=== PATIENT | female | born 1945 | race Caucasian/White ===

== ENCOUNTER 2018-12-21 09:20 | Outpatient (CLI) | payer MEDICARE, OTHER ==
--- NOTE | 2018-12-21 11:30 | MRI ---
MRI OF THE CERVICAL SPINE WITHOUT CONTRAST: INDICATION: History of cervicalgia. COMPARISON: None. FINDINGS: There is a cystic mass in the inferior aspect of the superficial left parotid gland on image 16 of se loco 11 measuring 1.2 cm. There is atrophy of the left parotid gland which is nonspecific. Bone marrow signal intensity of the cervical spine appears within normal limits. The visualized posterior fossa reveals no definite acute abnormality. At the C2-C3 level, there is moderate left and mild right facet joint degenerative change and mild le ft neural foraminal narrowing. There is a small central protrusion causing mild ventral effacement o f the subarachnoid space. At C3-4, there is severe facet joint degenerative change on the right and moderate facet joint degene rative change on the left. There is uncovertebral hypertrophy. There is mild to moderate right neur al foraminal narrowing. At C4-5, there is facet osteoarthrosis that is severe bilaterally, right greater than left. There is no appreciable central canal or neural foraminal narrowing. At C5-6, there is moderate left and mild right facet joint degenerative change. There is no apprecia ble central canal or neural foraminal narrowing. There is a broad-based disk bulge. At C6-7, there is mild broad-based bulge without appreciable central canal or neural foraminal narrow ing. At C7-T1, there is no appreciable central canal or neural foraminal narrowing. IMPRESSION: 1. Mild left neural foraminal narrowing at C2-3. Mild to moderate right neural foraminal narrowing at C3-4. 2. Complex cystic mass involving the inferior aspect of the left parotid gland is incompletely cynthia cterized. CT of the soft tissue neck utilizing IV contrast recommended for additional characterizati on. Nonspecific mild atrophy of the left parotid gland. ENT consultation is recommended. CODE T POS: C
--- NOTE | 2018-12-21 12:26 | MRI ---
MRI OF RIGHT SHOULDER PERFORMED WITHOUT CONTRAST ENHANCEMENT: HISTORY: Right shoulder pain. FINDINGS: There are some moderate AC joint hypertrophic changes with a laterally downsloping acromion. There is a full-thickness partial width anterior supraspinatus tendon tear. The tendon is minimally retracted by only 5-6 mm. The AP dimension of the tear is approximately 9-10 mm involving more the a nterior half of the tendon. The infraspinatus tendon is intact. Subscapularis muscle and tendon are normal in appearance. The biceps tendon is normal in position wi thin the bicipital groove. No definitive labral abnormalities are seen. The inferior glenohumeral ligament is intact. No significant rotator cuff muscle atrophy. IMPRESSION: Full-thickness partial-width far anterior supraspinatus tendon tear which is very minimally retracted . POS: TPC
== END 2018-12-21 09:21 | disposition home or self-care (01) ==
LOC: BICMRI 09:20
PROVIDERS: ATTEND Family Medicine
DX: M25.511 Pain in right shoulder (principal); M54.2 Cervicalgia; M75.101 Unspecified rotator cuff tear or rupture of right shoulder, not specified as traumatic; M48.02 Spinal stenosis, cervical region; K11.8 Other diseases of salivary glands
CPT/HCPCS: 72141

== ENCOUNTER 2018-12-26 02:52 | Outpatient (CLI) | payer MEDICARE, OTHER ==
[2018-12-26 12:28] LABS: #Lymphocytes 1.9 thou/uL (1.20-3.40); #Monocytes 0.9 thou/uL (0.11-0.59); #Neutrophils 6.8 thou/uL (1.40-6.50); %Basophils 0.3 % (0.0-1.0); %Eosinophils 0.4 % (0.0-10.0); %Lymphocytes 19.7 % (21.0-51.0); %Monocytes 9.5 % (0.0-10.0); Hemoglobin 13.2 g/dL (12.0-16.0); Mean Corpuscular HGB CONC 33.1 g/dL (32.0-36.0); Mean Corpuscular Hemoglobin 32.8 pg (27.0-31.0); Mean Corpuscular Volume 99.3 fL (78.0-98.0); Mean Platelet Volume 6.9 fL (7.4-10.4); Platelet Count 310 thou/uL (130-400); RBC Distribution Width 11.4 % (11.5-14.5); Red Blood Cell (RBC) Count 4.02 mill/uL (4.20-5.40); White Blood Cell (WBC) Count 9.7 thou/uL (4.8-10.8)
[2018-12-26 12:55] LABS: Anion Gap 14 mmol/L (10-20); BUN (Urea Nitrogen) 17 mg/dL (9.8-20.1); Calc. Creatinine Clearance 0 mL/min (70-130); Calcium 9.7 mg/dL (7.8-10.44); Carbon Dioxide 25 mmol/L (23-31); Chloride 106 mmol/L (98-107); Estimated GFR-MDRD 72; Glucose 71 mg/dL (83-110); Potassium 4.3 mmol/L (3.5-5.1); Sodium 141 mmol/L (136-145)
--- NOTE | 2018-12-26 16:59 | EKG ---
Test Reason : Blood Pressure : / mmHG Vent. Rate : 069 BPM Atrial Rate : 069 BPM P-R Int : 158 ms QRS Dur : 072 ms QT Int : 386 ms P-R-T Axes : 039 016 065 degrees QTc Int : 413 ms Normal sinus rhythm Normal ECG When compared with ECG of 03-OCT-2012 09:42, No significant change was found Confirmed by DR. Vimal GUILLEN ([id number]) on 12/26/2018 4:58:40 PM Referred By: ASHLEY Confirmed By:DR. Vimal GUILLEN
== END 2018-12-26 02:53 | disposition home or self-care (01) ==
LOC: LABBT 02:52
PROVIDERS: ATTEND Orthopaedic Surgery
DX: Z01.818 Encounter for other preprocedural examination (principal); M75.101 Unspecified rotator cuff tear or rupture of right shoulder, not specified as traumatic
CPT/HCPCS: 80048; 85025; 93005; 93010

== ENCOUNTER 2019-01-03 09:42 | Outpatient (CLI) | payer MEDICARE, OTHER ==
[2019-01-03] MEDS ORDERED: ISOVUE-370 76%-LOCM 1 ML ONE (11:26)
--- NOTE | 2019-01-03 11:50 | CT ---
POST CONTRAST SOFT TISSUE NECK CT: HISTORY: Neck pain. Recent MRI of the cervical spine demonstrated a left parotid mass. COMPARISON: None. CORRELATION: Cervical spine MRI from 12/21/2018. TECHNIQUE: Post contrast soft tissue neck CT is performed in the axial plane. Sagittal and coronal reformatted images are submitted for interpretation. FINDINGS: The visualized brain parenchyma is unremarkable. There is buphthalmos of both globes. Bilateral ocular lens implants are appropriately located. Both globes are intact, and retrobulbar fat is preserved. Symmetric attenuation of the optic nerves and ocular rectus muscles. Adequate aeration of the visualized sinuses and mastoid air cells. The aerodigestive tract is patent. No mucosal abnormality. Midline fatty raphe of the tongue is pre served. The epiglottis has a normal caliber. Pre-epiglottic fat is preserved. There is mass effect upon the posterior oral cavity secondary to medial deviation of both common mulligan tid arteries. The supraglottic, glottic, and subglottic larynx are unremarkable. Symmetric attenuation of the sternocleidomastoid muscles. Symmetric attenuation of the parotid glands. Unremarkable thyroid gland. There are bilateral nonenlarged soft tissue neck lymph nodes. In the anterior-inferior aspect of the left parotid gland, there is a 0.6 x 0.7 cm hypodense lesion, corresponding to the T2 hyperintense lesion noted on recent MRI. Additional left parotid masses and right parotid masses are not appreciated. Of note, the overall walling of the left parotid gland is l ess than the contralateral side, presumed to be due to atrophy. Correlate for previous partial left parotid resection. The upper mediastinum and lung apices are unremarkable. Cervical spine vertebral body height is maintained. There is no fracture. Osteophyte formation at C 5-C6 and C6-C7 is noted. Varying degrees of central canal stenosis and foraminal narrowing on the ba sis of degenerative change. IMPRESSION: Hypodense lesion involving the remnant of the left parotid tissue. The hypodense lesion corresponds to the T2 lesion noted on recent MRI. Correlate for previous partial left parotid resection versus c ongenital or acquired atrophy. POS: SJ
== END 2019-01-03 09:43 | disposition home or self-care (01) ==
LOC: BICCT 09:42
PROVIDERS: ATTEND Specialist
DX: M54.2 Cervicalgia (principal); K11.8 Other diseases of salivary glands; M89.9 Disorder of bone, unspecified
CPT/HCPCS: 70491; Q9966

== ENCOUNTER 2019-01-05 06:31 | Day surgery (SDC) | payer MEDICARE, OTHER ==
[2018-12-26 11:59] VITALS: BMI 29.5
[2019-01-05] MEDS ORDERED: Fentanyl 100 MCG/2 ML VIAL ONE ×2 (07:52→08:42)
[2019-01-05] MEDS ORDERED: Midazolam HCl 2 mg/2 ml Vial ONE (07:52)
[2019-01-05] MEDS ORDERED: Zolpidem Tartrate 5 MG TAB PO PRN (08:15)
[2019-01-05] MEDS ORDERED: Ropivacaine 0.2% 550 ML 550 ML NERVE BLCK SCH (08:15)
[2019-01-05] MEDS ORDERED: HYDROcodone/Acetaminophen 5/325 mg Tablet PO PRN ×2 (08:15)
[2019-01-05] MEDS ORDERED: Ketorolac Tromethamine 30 MG/ML VIAL IVP PRN (08:15)
[2019-01-05] MEDS ORDERED: traMADol HCl 50 MG TAB PO PRN ×2 (08:15)
[2019-01-05] MEDS ORDERED: Ondansetron PF 4 MG/2 ML Vial IVP PRN (08:15)
[2019-01-05] MEDS ORDERED: Promethazine HCl 25 MG/ML VIAL IM PRN (08:15)
[2019-01-05] MEDS ORDERED: Fentanyl 100 MCG/2 ML VIAL IV PRN (08:16)
[2019-01-05] MEDS ORDERED: SUGAMMADEX SODIUM 500 MG/5 ML VIAL ONE (10:19)
--- NOTE | 2019-01-05 12:43 | OP ---
DATE OF PROCEDURE: 01/05/2019 PREOPERATIVE DIAGNOSIS: Rotator cuff tear, right shoulder. POSTOPERATIVE DIAGNOSIS: Rotator cuff tear, right shoulder. PROCEDURE PERFORMED: Right arthroscopic rotator cuff repair double row using 2 Arthrex suture anchors medially and 2 SwiveLock anchors laterally. EXECUTIVE VP: Zoraida Malone PA-C. BLOOD LOSS: Minimal. SPECIMEN: None. DRAINS: None. COMPLICATION: None. DESCRIPTION OF PROCEDURE: The patient was taken to the operating room, where general anesthesia was induced, placed in left lateral decubitus position. Right arm was placed in 15 pounds of traction, prepped and draped in usual sterile fashion. Scope was in the glenohumeral joint. There was no significant arthritis. Biceps in good condition. There was a full-thickness rotator cuff tear. The scope was placed in subacromial bursa performed the bursectomy. CA ligament was taken down. Anterior inferior acromioplasty was performed with a nixon. I freshened the greater tuberosity with the shaver and a nixon. Two suture anchors were placed medially. Suture was passed through the rotator cuff and tied with good watertight repair, then reinforced with 2 SwiveLock devices in a crossing type fashion. Shoulders were then drained. Portals were closed in nylon suture. Sterile dressings were applied. No complications. Job ID: [id number]
[2019-01-05] MEDS ORDERED: Ropivacaine 0.5% HCl/PF (150 MG/30 ML VIAL) ONE (14:59)
[2019-01-05] MEDS ORDERED: Ropivacaine 0.2% HCl/PF (40 MG/20 ML VIAL) ONE (14:59)
[2019-01-05] MEDS ORDERED: Dexamethasone 20 MG/5 ML VIAL ONE (15:45)
[2019-01-05] MEDS ORDERED: PROPOFOL 200 MG/20 ML VIAL ONE (15:45)
[2019-01-05] MEDS ORDERED: PHENYLEPHRINE-NS 100 MCG/ML 10 ML SYRINGE ONE (15:45)
[2019-01-05] MEDS ORDERED: Ondansetron PF 4 MG/2 ML Vial ONE (15:45)
[2019-01-05] MEDS ORDERED: Rocuronium Bromide 10 MG/ML (10ML VIAL) ONE (15:45)
[2019-01-05] MEDS ORDERED: ePHEDrine 50 MG/ML VIAL ONE (15:45)
[2019-01-05] MEDS ORDERED: Lidocaine 1% PF 5 ML VIAL ONE (15:45)
[2019-01-05] MEDS ORDERED: Glycopyrrolate 0.2 MG/ML 5 ML SYRINGE ONE (15:45)
== END 2019-01-05 13:25 | disposition home or self-care (01) ==
LOC: SDC 06:31
PROVIDERS: ATTEND Orthopaedic Surgery
PROC: 0LM14ZZ Reattachment of Right Shoulder Tendon, Percutaneous Endoscopic Approach (ICD-10-PCS; principal; 2019-01-05)
PROC: 0RHJ44Z Insertion of Internal Fixation Device into Right Shoulder Joint, Percutaneous Endoscopic Approach (ICD-10-PCS; 2019-01-05)
DX: S46.011A Strain of muscle(s) and tendon(s) of the rotator cuff of right shoulder, initial encounter (principal); K21.9 Gastro-esophageal reflux disease without esophagitis; E03.9 Hypothyroidism, unspecified; F32.9 Major depressive disorder, single episode, unspecified; E78.00 Pure hypercholesterolemia, unspecified; F41.9 Anxiety disorder, unspecified; Z79.899 Other long term (current) drug therapy; Z88.0 Allergy status to penicillin; Z88.2 Allergy status to sulfonamides; Z88.8 Allergy status to other drugs, medicaments and biological substances; X50.0XXA Overexertion from strenuous movement or load, initial encounter
CPT/HCPCS: 29827; 97139; A4306; C1713; J1100; J2001; J2250; J2405; J2704; J2795; J3010; J3370; J3490

== ENCOUNTER 2019-01-27 10:54 | Emergency (ER) | payer MEDICARE, OTHER | END 2019-01-27 11:43 | disposition home or self-care (01) | LOC: ERS 10:54 | DX: G89.18 Other acute postprocedural pain (principal); M25.511 Pain in right shoulder; E78.5 Hyperlipidemia, unspecified; E03.9 Hypothyroidism, unspecified; F32.9 Major depressive disorder, single episode, unspecified | CPT/HCPCS: 99283 ==

== ENCOUNTER 2019-04-05 14:07 | Outpatient (CLI) | payer MEDICARE, OTHER ==
--- NOTE | 2019-04-06 07:46 | MMO ---
Bilateral MAMMO Bilat Screen [facility]. CLINICAL HISTORY: Patient is 73 years old and is seen for screening. The patient has no family history of breast cancer. The patient has no personal history of cancer. The patient has a history of left Lumpectomy at age 61 - benign. VIEWS: The views performed were: bilateral craniocaudal with tomosynthesis and bilateral mediolateral oblique with tomosynthesis. FILMS COMPARED: The present examination has been compared to prior imaging studies performed at [facility] on 02/09/2012, and at [facility] on 06/07/2017. MAMMOGRAM FINDINGS: The breasts are heterogeneously dense, which could obscure a lesion on mammography. There are benign appearing calcifications seen in both breasts. There are also vascular calcifications. There are no suspicious masses, suspicious calcifications, or new areas of architectural distortion. IMPRESSION: THERE IS NO MAMMOGRAPHIC EVIDENCE OF MALIGNANCY. A ROUTINE FOLLOW-UP MAMMOGRAM IN 1 YEAR IS RECOMMENDED. THE RESULTS OF THIS EXAM WERE SENT TO THE PATIENT. ACR BI-RADS Category 2 - Benign finding MAMMOGRAPHY NOTE: 1. A negative mammogram report should not delay a biopsy if a dominant of clinically suspicious mass is present. 2. Approximately 10% to 15% of breast cancers are not detected by mammography. 3. Adenosis and dense breasts may obscure an underlying neoplasm.
== END 2019-04-05 14:08 | disposition home or self-care (01) ==
LOC: BICMAMMO 14:07
PROVIDERS: ATTEND Family Medicine
DX: Z12.31 Encounter for screening mammogram for malignant neoplasm of breast (principal); Z90.12 Acquired absence of left breast and nipple
CPT/HCPCS: 77063; 77067

== ENCOUNTER 2020-10-27 11:35 | Inpatient (IN) | payer MEDICARE, OTHER ==
--- NOTE | 2020-10-27 12:14 | RAD ---
Exam: Chest one view HISTORY:Dyspnea. COVID positive patient. Shortness of breath and fatigue. Comparison: None FINDINGS: Cardiac silhouette: Normal Aorta: Atherosclerotic Pulmonary vessels: Normal Costophrenic angles: Clear LUNGS: Scattered interstitial and alveolar opacities. Pneumothorax: None Osseous abnormalities: None IMPRESSION: 1. Scattered interstitial and alveolar opacities. Correlate for multi lobar COVID pneumonia 2. Atherosclerosis.
[2020-10-27] MEDS ORDERED: cefTRIAXone\\ROCEPHIN 1 GM VIAL ONE (12:38)
[2020-10-27] MEDS ORDERED: Dexamethasone 10 MG/ML VIAL ONE (12:38)
[2020-10-27 12:51] LABS: #Lymphocytes 0.7 thou/uL (1.20-3.40); #Monocytes 0.7 thou/uL (0.11-0.59); #Neutrophils 7.9 thou/uL (1.40-6.50); %Basophils 0.2 % (0.0-1.0); %Eosinophils 0.2 % (0.0-10.0); %Lymphocytes 7.4 % (21.0-51.0); %Monocytes 7.7 % (0.0-10.0); %Neutrophils 84.5 % (42.0-75.0); Hemoglobin 12.6 g/dL (12.0-16.0); Mean Corpuscular HGB CONC 32.1 g/dL (32.0-36.0); Mean Corpuscular Hemoglobin 33.4 pg (27.0-31.0); Mean Platelet Volume 7.3 fL (7.4-10.4); Platelet Count 164 thou/uL (130-400); RBC Distribution Width 11.3 % (11.5-14.5); Red Blood Cell (RBC) Count 3.78 mill/uL (4.20-5.40); White Blood Cell (WBC) Count 9.4 thou/uL (4.8-10.8)
[2020-10-27 12:55] LABS: INR-International Normal Ratio 0.9; Prothrombin Time 12.1 sec (12.0-14.7)
[2020-10-27 12:57] LABS: D-Dimer Test 1.1 *mcg/mL (0.27-0.43)
[2020-10-27 13:04] LABS: PTT 17.7 sec (22.9-36.1)
[2020-10-27 13:18] LABS: ALT (SGPT) 18 U/L (8-55); AST (SGOT) 27 U/L (5-34); Alkaline Phosphatase 72 U/L (40-110); Anion Gap 17 mmol/L (10-20); BUN (Urea Nitrogen) 11 mg/dL (9.8-20.1); Bilirubin, Total 0.5 mg/dL (0.2-1.2); CRP (Inflammatory) 23.03 mg/dL (= or < 0.5); Calc. Creatinine Clearance 0 mL/min (70-130); Calcium 9.1 mg/dL (7.8-10.44); Carbon Dioxide 23 mmol/L (23-31); Chloride 97 mmol/L (98-107); Globulin 3.9 g/dL (2.4-3.5); Glucose 134 mg/dL (83-110); Potassium 3.9 mmol/L (3.5-5.1); Protein, Total 7.9 g/dL (6.0-8.3); Sodium 133 mmol/L (136-145)
[2020-10-27 13:31] LABS: CKMB 0.7 ng/mL (0-6.6)
[2020-10-27] MEDS ORDERED: Azithromycin 250 MG TAB ONE (13:53)
--- NOTE | 2020-10-27 14:48 | PDOC.HHP ---
Hospitalist HPI - History of Present Illness SOB History of Present Illness: Ms. Rico is a 74 year-old female with a PMHx of HLD, hypothyroidism who presents to the emergency room for cough. Patient reports she tested positive this morning for COVID and presented to the emergency room. She denies shortness of breath, but endorses dry cough, fatigue, and subjective fevers. She also notes she has a tooth abscess and is finishing a course of clindamycin. SHe endorses tooth pain, but reports that it is improving. She denies chest pain, SOB, palpitations. In ED initial vital signs 125/57, 87, 19, 99% on RA. CXR showed patchy bilateral infiltrates. WBC 9.4. BUN/Cr 11/0.85. Na 133, K 3.9. Lactic acid 1.4. D-dimer 1.10, CRP 23. Patient received ceftriazone, azithormycin, and lovenox. Patient admitted to hospitalist service for further observation. Hospitalist ROS - Review of Systems Constitutional: reports: fever, chills, weakness, malaise Eyes: denies: pain, vision change, conjunctivae inflammation, eyelid inflammation, redness, other ENT: denies: ear pain, ear discharge, nose pain, nose discharge, nose congestion, mouth pain, mouth swelling, throat pain, throat swelling, other Respiratory: reports: cough, dry, shortness of breath. denies: hemoptysis, SOB with excertion, pleuritic pain, sputum, wheezing, other Cardiovascular: denies: chest pain, palpitations, orthopnea, paroxysmal noc. dyspnea, edema, light headedness, other Gastrointestinal: denies: nausea, vomiting, abdominal pain, diarrhea, constipation, melena, hematochezia, other Genitourinary: denies: dysuria, frequency, incontinence, hematuria, retention, other Musculoskeletal: denies: neck pain, shoulder pain, arm pain, back pain, hand pain, leg pain, foot pain, other Skin: denies: rash, lesions, sandrita, bruising, other Neurological: denies: weakness, numbness, incoordination, change in speech, confusion, seizures, other - Medication Medications: Home medications include: levothyroxine citalopram atorvastatin pyridoxine Allergies to PCN, erythromycin, sulfa abx Hospitalist History - Past Medical History Other Medical History: Past medical history of Hypothyroidism Hyperlipidemia Anxiety/depression - Past Surgical History Other Surgical History: Past surgical history includes: Hernia repair L breast lumpectomy Appendectomy Cholecystectomy Hysterectomy - Family History Other Family History: No pertinent family history - Social History Smoking Status: Never smoker Alcohol: reports: None Drugs: reports: none Living Situation: With Family Activity level: independent ambulation - Exam General Appearance: NAD, awake alert Eye: PERRL, anicteric sclera ENT: normocephalic atraumatic, no oropharyngeal lesions, moist mucosa Neck: supple, symmetric, no JVD, no thyromegaly, no lymphadenopathy, no carotid bruit Heart: RRR, no murmur, no gallops, no rubs, normal peripheral pulses Respiratory: CTAB, no wheezes, no rales, no ronchi, normal chest expansion, no tachypnea, normal percussion Gastrointestinal: soft, non-tender, non-distended, normal bowel sounds, no palpable masses, no hepatomegaly, no splenomegaly, no bruit Extremities: no cyanosis, no clubbing, no edema Skin: normal turgor, no lesions, no rashes Neurological: cranial nerve grossly intact, normal sensation to touch, no weakness, no focal deficits, no new deficit Musculoskeletal: normal tone, normal strength, no muscle wasting Psychiatric: normal affect, normal behavior, A&O x 3 Hospitalist Results - Labs Result Diagrams: 10/27/20 12:38 10/27/20 12:38 Lab results: WBC 9.4 thou/uL (4.8-10.8) 10/27/20 12:38 Hgb 12.6 g/dL (12.0-16.0) 10/27/20 12:38 Hct 39.3 % (36.0-47.0) 10/27/20 12:38 MCV 104.0 fL (78.0-98.0) H 10/27/20 12:38 Plt Count 164 thou/uL (130-400) 10/27/20 12:38 Neutrophils % 84.5 % (42.0-75.0) H 10/27/20 12:38 ESR Westergren 55 mm/hr (Less than 30) H 10/27/20 12:38 Sodium 133 mmol/L (136-145) L 10/27/20 12:38 Potassium 3.9 mmol/L (3.5-5.1) 10/27/20 12:38 Chloride 97 mmol/L (98-107) L 10/27/20 12:38 Carbon Dioxide 23 mmol/L (23-31) 10/27/20 12:38 BUN 11 mg/dL (9.8-20.1) 10/27/20 12:38 Creatinine 0.85 mg/dL (0.6-1.1) 10/27/20 12:38 Glucose 134 mg/dL (83-110) H 10/27/20 12:38 Lactic Acid 1.4 mmol/L (0.5-2.2) 10/27/20 12:38 Calcium 9.1 mg/dL (7.8-10.44) 10/27/20 12:38 Total Bilirubin 0.5 mg/dL (0.2-1.2) 10/27/20 12:38 AST 27 U/L (5-34) 10/27/20 12:38 ALT 18 U/L (8-55) 10/27/20 12:38 Alkaline Phosphatase 72 U/L (40-110) 10/27/20 12:38 CK-MB (CK-2) 0.7 ng/mL (0-6.6) 10/27/20 12:39 Troponin I 0.029 ng/mL (< 0.028) H 10/27/20 12:39 C-Reactive Protein 23.03 mg/dL (= or < 0.5) H 10/27/20 12:38 B-Natriuretic Peptide 39.6 pg/mL (0-100) 10/27/20 12:38 Serum Total Protein 7.9 g/dL (6.0-8.3) 10/27/20 12:38 Albumin 4.0 g/dL (3.4-4.8) 10/27/20 12:38 Hospitalist H&P A/P - Plan Plan: COVID-19 PNEUMONIA Patient tested positive this am for covid by PCP. Reports she felt anxious and SOB so presented to the ER. Has been having symptoms for the past four days of cough, malaise, subjective fevers. CXR showed bilateral patchy infiltrates. Patient has been maintaining O2 sat at 100% on RA. Inflammatory markers elevated, troponin 0.029, CRP 23. Patient received 1 mg/kg of lovenox in the ED as well as ceftriaxone and azithromycin. Will keep patient for observation. If patient continues to remain off oxygen and does not de-saturate when she ambulates, patient will likely be able to be discharged. Patient currently does not meet criteria for remdesivir since she does not have an oxygen requirement. No suspicion for superimposed bacterial pneumonia, so will not continue CAP coverage. Plan -Ambulatory O2 -Closely monitor respiratory status -Continue decadron 6 mg PO Tooth abscess Patient being treated as an outpatient for a tooth abscess with clindamycin. Has completed 3/7 days of abx. Reports pain is improving. Will have patient continue this while she is here. Plan -Continue clindamycin for three more days Hypothyroidism Continue home levothyroxine Hyperlipidemia Continue home statin DVT prophylaxis: Lovenox 40 mg BID FULL CODE Case discussed with attending physician, Dr. Borrero.
[2020-10-27] MEDS ORDERED: Enoxaparin Sodium 100 MG/ML SYRINGE ONE (15:01)
[2020-10-27] MEDS ORDERED: Ondansetron ODT 4 MG TAB PO PRN (15:05)
[2020-10-27 16:11] LABS: Troponin I 0.021 ng/mL (< 0.028)
[2020-10-27 17:19] VITALS: BMI 29.7
[2020-10-27 19:06] LABS: Troponin I 0.022 ng/mL (< 0.028)
[2020-10-27] MEDS: Enoxaparin Sodium 40 MG/0.4 ML SYRINGE SC SCH (21:22)
[2020-10-28 05:19] LABS: Anion Gap 18 mmol/L (10-20); BUN (Urea Nitrogen) 17 mg/dL (9.8-20.1); Calc. Creatinine Clearance 72 mL/min (70-130); Calcium 9.3 mg/dL (7.8-10.44); Carbon Dioxide 19 mmol/L (23-31); Chloride 103 mmol/L (98-107); Glucose 139 mg/dL (83-110); Sodium 136 mmol/L (136-145)
[2020-10-28 07:49] LABS: Hemoglobin 12.2 g/dL (12.0-16.0); Mean Corpuscular HGB CONC 34.8 g/dL (32.0-36.0); Mean Corpuscular Volume 97.7 fL (78.0-98.0); Mean Platelet Volume 6.6 fL (7.4-10.4); Platelet Count 346 thou/uL (130-400); RBC Distribution Width 11.1 % (11.5-14.5); Red Blood Cell (RBC) Count 3.57 mill/uL (4.20-5.40); White Blood Cell (WBC) Count 17.6 thou/uL (4.8-10.8)
[2020-10-28 08:17] LABS: Band 16 % (5-11); Lymphocytes 3 % (21-51); MDiff Complete? YES; Monocytes 9 % (0-10); Neutrophil 70 % (42-75); RBC Morphology Normal; Reactive Lymphocytes 2 % (0-10)
[2020-10-28] MEDS: Enoxaparin Sodium 40 MG/0.4 ML SYRINGE SC SCH ×2 (08:19→20:27)
[2020-10-28] MEDS: Dexamethasone 4 MG TAB PO SCH (08:19)
[2020-10-28] MEDS ORDERED: cefTRIAXone\\ROCEPHIN 1 GM in Sodium Chloride 0.9% 100 ML IVPB SCH (09:00)
[2020-10-28] MEDS ORDERED: Azithromycin 500 MG in Sodium Chloride 0.9% 250 ML 250 ML IVPB SCH (09:00)
--- NOTE | 2020-10-28 10:38 | PDOC.HOSPP ---
- Subjective Encounter Date: 10/28/20 Encounter Time: 10:37 Subjective: No overnight events. Patient resting comfortably in bed. Maintaining O2 sat well on RA, however SOB when moving about the room. Chart and medications reviewed. - Objective Vital Signs & Weight: Vital Signs (12 hours) Temp Pulse Resp BP Pulse Ox 10/28/20 08:38 97.8 F 74 18 122/60 95 10/28/20 04:54 98 F 72 17 116/56 L 95 Weight Weight 152 lb 9.6 oz Result Diagrams: 10/30/20 05:11 10/30/20 05:11 Hospitalist ROS - Review of Systems Constitutional: reports: fever, malaise Eyes: denies: vision change ENT: reports: nose congestion Respiratory: reports: cough, dry, shortness of breath Cardiovascular: denies: chest pain, palpitations Gastrointestinal: denies: nausea, vomiting, abdominal pain, diarrhea Genitourinary: denies: dysuria Musculoskeletal: denies: neck pain, shoulder pain, arm pain, back pain, hand pain, leg pain, foot pain, other Skin: denies: rash, lesions Neurological: denies: weakness, numbness - Medication Medications: Active Medications Generic Name Dose Route Start Last Admin Trade Name Freq PRN Reason Stop Dose Admin Dexamethasone 6 mg 10/28/20 08:00 10/28/20 08:19 Dexamethasone 4 Mg Tab PO 6 mg QAM-WM KHAI Administration Enoxaparin Sodium 40 mg 10/27/20 21:00 10/28/20 08:19 Enoxaparin Sodium 40 Mg/0.4 Ml Syringe SC 40 mg 0900,2100 KHAI Administration - Exam General Appearance: NAD, awake alert Eye: PERRL, anicteric sclera ENT: normocephalic atraumatic, no oropharyngeal lesions, moist mucosa Neck: supple, symmetric, no JVD, no thyromegaly, no lymphadenopathy, no carotid bruit Heart: RRR, no murmur, no gallops, no rubs, normal peripheral pulses Respiratory - other findings: rales thorughout Gastrointestinal: soft, non-tender, non-distended, normal bowel sounds, no palp able masses, no hepatomegaly, no splenomegaly, no bruit Extremities: no cyanosis, no clubbing, no edema Skin: normal turgor, no lesions, no rashes Neurological: normal sensation to touch, no weakness, no focal deficits Musculoskeletal: normal tone, normal strength, no muscle wasting Psychiatric: normal affect, normal behavior, A&O x 3 Hosp A/P - Plan COVID-19 PNEUMONIA Patient tested positive this am for covid by PCP. Reports she felt anxious and SOB so presented to the ER. Has been having symptoms for the past four days of cough, malaise, subjective fevers. CXR showed bilateral patchy infiltrates. Patient has been maintaining O2 sat on RA, but is SOB. Does have SOB when she ambulated around her room. Inflammatory markers elevated, troponin 0.029, CRP 23. Patient received 1 mg/kg of lovenox in the ED as well as ceftriaxone and azithromycin. Patient with elevated WBC this am to 17.6. Will continue CAP coverage with ceftriaxone and azithormycin. Plan -IV ceftriazone and azithromycin -Closely monitor respiratory status -Continue decadron 6 mg PO daily -Tylenol for fever, robitussin for cough Tooth abscess Patient being treated as an outpatient for a tooth abscess with clindamycin. Has completed 3/7 days of abx. Reports pain is improving. Will have patient continue this while she is here. Plan -Continue clindamycin for three more days Hypothyroidism Continue home levothyroxine Hyperlipidemia Continue home statin DVT prophylaxis: Lovenox 40 mg BID FULL CODE Case discussed with attending physician, Dr. Islas.
[2020-10-28] MEDS: Clindamycin 150 MG CAP PO SCH ×2 (12:27→17:55)
[2020-10-28] MEDS: pyridOXINE 50 MG (B6) TAB PO SCH (12:28)
[2020-10-28] MEDS: Azithromycin 500 MG in Sodium Chloride 0.9% 250 ML 250 ML IVPB SCH (15:01)
--- NOTE | 2020-10-28 16:26 | PDOC.FMACP ---
Advance Care Planning - Problem (1) Pneumonia due to COVID-19 virus Status: Acute Code(s): U07.1 - COVID-19; J12.89 - OTHER VIRAL PNEUMONIA (2) Palliative care encounter Status: Acute Code(s): Z51.5 - ENCOUNTER FOR PALLIATIVE CARE - Note Participants: patient, palliative care Summary: Palliative Care has Advanced Care Planning. The diagnosis, prognosis and goals of care were discussed. Appropriate forms and documentation to accomplish the goals of care were discussed. All questions were answered. Follow up for primary RN visit. *Continue with full resuscitation *No MPOA, spouse . Has two children who would share decision making. *Will review Directive to Physician, however does not desire to complete at this time. Please also refer to Palliative Care notes in note section. Will follow up 10/29/2020 to revisit patient interest in completing Directive to Physician in the event she is unable to make her wishes known. Time Spent (mins): 20
[2020-10-28] MEDS: cefTRIAXone\\ROCEPHIN 1 GM in Sodium Chloride 0.9% 100 ML IVPB SCH (16:27)
[2020-10-28] MEDS: Atorvastatin Calcium 40 MG TAB PO SCH (20:27)
[2020-10-29] MEDS: Clindamycin 150 MG CAP PO SCH ×4 (00:52→18:40)
[2020-10-29] MEDS: Levothyroxine Sodium 25 MCG TAB PO SCH (05:55)
[2020-10-29 06:05] LABS: Anion Gap 15 mmol/L (10-20); BUN (Urea Nitrogen) 23 mg/dL (9.8-20.1); Calc. Creatinine Clearance 66 mL/min (70-130); Calcium 8.7 mg/dL (7.8-10.44); Carbon Dioxide 24 mmol/L (23-31); Chloride 102 mmol/L (98-107); Glucose 117 mg/dL (83-110); Potassium 3.6 mmol/L (3.5-5.1); Sodium 137 mmol/L (136-145)
[2020-10-29 07:25] LABS: Hemoglobin 11.3 g/dL (12.0-16.0); Mean Corpuscular HGB CONC 33.1 g/dL (32.0-36.0); Mean Corpuscular Hemoglobin 33.2 pg (27.0-31.0); Mean Platelet Volume 6.8 fL (7.4-10.4); Platelet Count 407 thou/uL (130-400); RBC Distribution Width 11.2 % (11.5-14.5); White Blood Cell (WBC) Count 18.7 thou/uL (4.8-10.8)
[2020-10-29] MEDS ORDERED: Citalopram 20 MG TAB PO SCH ×2 (09:00→21:00)
[2020-10-29] MEDS: Cyanocobalamin (Vitamin B-12) 1,000 MCG TAB PO SCH (09:03)
[2020-10-29] MEDS: pyridOXINE 50 MG (B6) TAB PO SCH (09:03)
[2020-10-29] MEDS: Enoxaparin Sodium 40 MG/0.4 ML SYRINGE SC SCH ×2 (09:03→20:13)
[2020-10-29] MEDS: Dexamethasone 4 MG TAB PO SCH (09:03)
[2020-10-29 10:07] LABS: Band 12 % (5-11); Lymphocytes 6 % (21-51); MDiff Complete? YES; Monocytes 8 % (0-10); Neutrophil 73 % (42-75); Platelet Morphology Comment Appears Increased; RBC Morphology Normal; Reactive Lymphocytes 1 % (0-10)
--- NOTE | 2020-10-29 12:59 | PDOC.HOSPP ---
- Subjective Encounter Date: 10/29/20 Encounter Time: 12:00 Subjective: Patient seen for follow-up today for COVID-19 pneumonia. No overnight events. She is resting in her chair. She is maintaining her O2 saturation on room air at 92%, however she drops to the low 80s when ambulating around the room. Patient also become increasingly short of breath when when talking. Ms. Rico also endorses that she has had multiple bowel movements of diarrhea since yesterday, which is not normal for her. She states that this started after the antibiotics were started. She states her oral surgeon is coming in to see her tonight regarding her tooth abscess. - Objective Vital Signs & Weight: Vital Signs (12 hours) Temp Pulse Resp BP BP Pulse Ox 10/29/20 09:00 98.5 F 87 18 133/60 92 L 10/29/20 03:40 98.9 F 79 18 116/56 L 92 L Weight Weight 152 lb 9.6 oz Result Diagrams: 10/29/20 05:24 10/29/20 05:24 EKG Reviewed by me: Yes Hospitalist ROS - Review of Systems ENT: reports: mouth pain, other (dental pain) Respiratory: reports: shortness of breath, SOB with excertion All other systems reviewed; all pertinent +/- noted in HPI/Subj - Medication Medications: Active Medications Generic Name Dose Route Start Last Admin Trade Name Freq PRN Reason Stop Dose Admin Atorvastatin Calcium 40 mg 10/28/20 21:00 10/28/20 20:27 Atorvastatin Calcium 40 Mg Tab PO 40 mg QPM KHAI Administration Clindamycin HCl 150 mg 10/28/20 12:00 10/29/20 05:55 Clindamycin 150 Mg Cap PO 150 mg Q6HR KHAI Administration Cyanocobalamin 1,000 mcg 10/29/20 09:00 10/29/20 09:03 Cyanocobalamin (Vitamin B-12) 1,000 Mcg Tab PO 1,000 mcg DAILY KHAI Administration Dexamethasone 6 mg 10/28/20 08:00 10/29/20 09:03 Dexamethasone 4 Mg Tab PO 6 mg QAM-WM KHAI Administration Enoxaparin Sodium 40 mg 10/27/20 21:00 10/29/20 09:03 Enoxaparin Sodium 40 Mg/0.4 Ml Syringe SC 40 mg 0900,2100 KHAI Administration Ceftriaxone Sodium 1 gm/ 100 mls @ 200 mls/hr 10/28/20 15:00 10/28/20 16:27 Sodium Chloride IVPB 100 mls 1500 KHAI Administration Azithromycin 500 mg/ Sodium 250 mls @ 250 mls/hr 10/28/20 14:00 10/28/20 15: 01 Chloride IVPB 250 mls 1400 KHAI Administration Levothyroxine Sodium 25 mcg 10/29/20 06:00 10/29/20 05:55 Levothyroxine Sodium 25 Mcg Tab PO 25 mcg 0600 KHAI Administration Pyridoxine HCl 50 mg 10/28/20 09:00 10/29/20 09:03 Pyridoxine 50 Mg (B6) Tab PO 50 mg DAILY KHAI Administration - Exam General Appearance: awake alert General - other findings: tired appearing Eye: PERRL ENT: normocephalic atraumatic Heart: RRR, no murmur, no gallops, no rubs, normal peripheral pulses Respiratory: no rales (throughout) Gastrointestinal: soft, non-tender, non-distended, normal bowel sounds Extremities: no edema Neurological: no focal deficits Hosp A/P - Plan COVID-19 PNEUMONIA -Continue IV ceftriazone and azithromycin -Closely monitor respiratory status -Continue decadron 6 mg PO daily -Tylenol for fever, robitussin for cough Tooth abscess -Continue clindamycin as prescribed -Patient states her oral surgeon is coming to see her tonight in the hospital Diarrhea -Send stool sample to test for C diff -If c diff test negative can start Imodium -Begin probiotic Hypothyroidism -Continue home levothyroxine Hyperlipidemia -Continue home statin
[2020-10-29] MEDS: Azithromycin 500 MG in Sodium Chloride 0.9% 250 ML 250 ML IVPB SCH (13:03)
[2020-10-29] MEDS: Acetaminophen 325 MG TAB PO PRN ×2 (14:55→20:13)
[2020-10-29] MEDS: cefTRIAXone\\ROCEPHIN 1 GM in Sodium Chloride 0.9% 100 ML IVPB SCH (18:40)
[2020-10-29] MEDS: Atorvastatin Calcium 40 MG TAB PO SCH (20:14)
[2020-10-30] MEDS: Clindamycin 150 MG CAP PO SCH ×4 (04:12→17:45)
[2020-10-30] MEDS: Levothyroxine Sodium 25 MCG TAB PO SCH (05:45)
[2020-10-30 05:51] LABS: #Basophils 0.1 thou/uL (0.0-0.2); #Eosinphils 0.1 thou/uL (0.0-0.7); #Monocytes 1.7 thou/uL (0.11-0.59); %Eosinophils 0.7 % (0.0-10.0); %Lymphocytes 7.7 % (21.0-51.0); %Neutrophils 77.6 % (42.0-75.0); Hemoglobin 11.4 g/dL (12.0-16.0); Mean Corpuscular HGB CONC 34.8 g/dL (32.0-36.0); Mean Corpuscular Hemoglobin 34.6 pg (27.0-31.0); Mean Corpuscular Volume 99.4 fL (78.0-98.0); Mean Platelet Volume 6.8 fL (7.4-10.4); Platelet Count 404 thou/uL (130-400); RBC Distribution Width 11.2 % (11.5-14.5); White Blood Cell (WBC) Count 12.9 thou/uL (4.8-10.8)
[2020-10-30 06:20] LABS: Anion Gap 15 mmol/L (10-20); BUN (Urea Nitrogen) 19 mg/dL (9.8-20.1); Calc. Creatinine Clearance 74 mL/min (70-130); Calcium 8.6 mg/dL (7.8-10.44); Carbon Dioxide 24 mmol/L (23-31); Chloride 105 mmol/L (98-107); Glucose 100 mg/dL (83-110); Potassium 3.8 mmol/L (3.5-5.1); Sodium 140 mmol/L (136-145)
--- NOTE | 2020-10-30 08:34 | CON ---
DATE OF CONSULTATION: REASON FOR CONSULTATION: Dental abscess. CHIEF COMPLAINT: Dental pain. HISTORY OF PRESENT ILLNESS: Ms. Denita Rico has been admitted in the hospital over the last several days for COVID-related shortness of breath. Of note, she has had a 1-week history of upper left tooth pain and swelling, for which she was put on clindamycin by her dentist. This area decompressed. The swelling went away and she had resolution of her pain, however, needs to get set up for removal of the tooth. PHYSICAL EXAMINATION: GENERAL: The patient is awake, alert, and oriented x3. She is in no acute distress. HEENT: Her oral opening is good. She does have a decayed tooth #15 underneath the crown. No tenderness to palpation. No current swelling. No drainage at this point. ASSESSMENT: Necrotic tooth 15 with history of abscess. PLAN: Upon discharge, we will schedule the patient for removal of tooth 15. Job ID: [id number]
[2020-10-30] MEDS ORDERED: Saccharomyces boulardii 250 MG CAP PO SCH (09:00)
[2020-10-30] MEDS: Dexamethasone 4 MG TAB PO SCH (09:16)
[2020-10-30] MEDS: Enoxaparin Sodium 40 MG/0.4 ML SYRINGE SC SCH (09:16)
[2020-10-30] MEDS: Cyanocobalamin (Vitamin B-12) 1,000 MCG TAB PO SCH (09:16)
[2020-10-30] MEDS: pyridOXINE 50 MG (B6) TAB PO SCH (09:17)
[2020-10-30 13:34] VITALS: BP 140/65; TEMP 96.2
[2020-10-30] MEDS: cefTRIAXone\\ROCEPHIN 1 GM in Sodium Chloride 0.9% 100 ML IVPB SCH (16:02)
[2020-10-30] MEDS: Acetaminophen 325 MG TAB PO PRN (16:18)
--- NOTE | 2020-10-30 18:08 | PDOC.DS.DS ---
Provider - Provider Date of Admission: 10/27/20 14:16 Date of Discharge: 10/30/20 Admitting Provider: Clemente Islas MD Primary Care Physician: Saloni Mueller MD Course - Hospital Course Hospital Course: COVID-19 PNEUMONIA -Empiric antibiotics. -Did not meed criteria for specific therapies due to lack of hypoxia. -Decadron therapy only based upon subjective SOB. -Tylenol for fever, robitussin for cough Tooth abscess -Improved with IV abx. -Seen by oral surgeon. -Plan is for OP extraction in one week. Diarrhea -C diff negative. -May be manifestation of Covid 19. Hypothyroidism -Continue home levothyroxine Hyperlipidemia -Continue home statin Disposition: No hypoxia with ambulation noted. Patient reported generalized fatigue/weakness. She was independent and able to get herself to the shower with problems. She did not qualify for rehab or swing bed. Recommended HH/HPT. CM consulted and referral sent. Resuscitation Status: 10/27/20 15:05 Resuscitation Status Routine Co-Sign Provider: Resuscitation Status: FULL: Full Resuscitation - Labs Lab Results: 10/30/20 05:11 10/30/20 05:11 Abnormal Lab Results - Last 48 hrs 10/29/20 05:24: BUN 23 H 10/29/20 05:24: WBC 18.7 H, RBC 3.40 L, Hgb 11.3 L, Hct 34.0 L, MCV 100.0 H, MCH 33.2 H, RDW 11.2 L, Plt Count 407 H, MPV 6.8 L, Band Neuts % (Manual) 12 H, Lymphocytes % (Manual) 6 L, Plt Morphology Comment Appears Increased H 10/30/20 05:11: WBC 12.9 H, RBC 3.30 L, Hgb 11.4 L, Hct 32.8 L, MCV 99.4 H, MCH 34.6 H, RDW 11.2 L, Plt Count 404 H, MPV 6.8 L, Neutrophils % 77.6 H, Ly mphocytes % 7.7 L, Monocytes % 13.0 H, Neutrophils # 10.0 H, Lymphocytes # 1.0 L, Monocytes # 1.7 H Microbiology - Entire Visit 10/29/20 14:55 Stool C. difficile GDH Antigen & Toxins - Final - Physical Exam Vitals: Vital Signs (12 hours) Temp Pulse Resp BP Pulse Ox 10/30/20 11:50 96.2 F L 69 20 140/65 94 L 10/30/20 08:00 97.0 F L 85 20 125/59 L 94 L Weight Weight 152 lb 9.6 oz Physical Exam: The patient was seen and examined on the day of discharge. Problem - Discharge Plan Health Concerns: occup therapist prescriptions at [facility] in [place] - Problem (1) Tooth abscess Code(s): K04.7 - PERIAPICAL ABSCESS WITHOUT SINUS Status: Acute (2) Pneumonia due to COVID-19 virus Code(s): U07.1 - COVID-19; J12.89 - OTHER VIRAL PNEUMONIA Status: Acute (3) Diarrhea Code(s): R19.7 - DIARRHEA, UNSPECIFIED Status: Acute (4) HTN (hypertension) Code(s): I10 - ESSENTIAL (PRIMARY) HYPERTENSION Status: Acute (5) Hypothyroidism Code(s): E03.9 - HYPOTHYROIDISM, UNSPECIFIED Status: Acute - Time spent with Patient (mins): 36 Plan - Discharge Medications Prescriptions: Clindamycin HCl [Cleocin] 300 mg PO TID #21 capsule Dexamethasone [Decadron] 6 mg PO QAM-WM #7 tab Home Medications: Medication Instructions Recorded Confirmed Type Atorvastatin Calcium [Lipitor] 40 mg PO QPM 12/26/18 10/27/20 History Citalopram Hydrobromide 20 mg PO DAILY 12/26/18 10/27/20 History [Citalopram HBr] Cyanocobalamin (Vitamin B-12) 1,000 mcg PO DAILY 12/26/18 10/27/20 History [Vitamin B-12] Levothyroxine Sodium 25 mcg PO DAILY 12/26/18 10/27/20 History Multivitamin [Daily Multiple 1 each PO DAILY 12/26/18 10/27/20 History Vitamin] Ubidecarenone/Vit E Acet [Co Q-10 1 each PO DAILY 12/26/18 10/27/20 History 100 mg Softgel] pyridOXINE [Vitamin B 6] 50 mg PO DAILY 12/26/18 10/27/20 History Clindamycin [Cleocin] 150 mg PO Q6HR 10/27/20 10/27/20 History Clindamycin HCl [Cleocin] 300 mg PO TID #21 capsule 10/30/20 Rx Dexamethasone [Decadron] 6 mg PO QAM-WM #7 tab 10/30/20 Rx Saccharomyces boulardii [Florastor] 250 mg PO DAILY cap 10/30/20 Rx Allergies: Penicillins Allergy (Severe, Verified 02/09/20 21:15) Anaphylaxis erythromycin base Allergy (Intermediate, Verified 02/09/20 21:15) ITCHING Sulfa (Sulfonamide Antibiotics) Allergy (Intermediate, Verified 02/09/20 21:15) ITCHING - Discharge Instructions Discharge Instructions:: Referred to [facility] [phone]--call tomorrow 10/31 if they do not call you first. Activity:: Activity as Tolerated Nourishment:: No Restrictions Therapies:: Physical Therapy - Follow up Plan Referrals: Niall Melendrez DDS [Active] - 7 Days Saloni Mueller MD [Primary Care Provider] - 7 Days Disposition: HOME HEALTH Quality - Care Measures CORE MEASURES:: N/A
== END 2020-10-30 18:24 | disposition home health service (06) | DRG 177 ==
LOC: ERS 11:35 → 2SW 14:16
PROVIDERS: ADMIT Internal Medicine; ATTEND Internal Medicine
PROC: 8E0ZXY6 Isolation (ICD-10-PCS; principal; 2020-10-27)
DX: U07.1 COVID-19 (principal); J12.89 Other viral pneumonia; E87.1 Hypo-osmolality and hyponatremia; E78.5 Hyperlipidemia, unspecified; E03.9 Hypothyroidism, unspecified; K04.1 Necrosis of pulp; R19.7 Diarrhea, unspecified; I10 Essential (primary) hypertension; K04.7 Periapical abscess without sinus; F41.9 Anxiety disorder, unspecified; F32.9 Major depressive disorder, single episode, unspecified; Z90.49 Acquired absence of other specified parts of digestive tract; Z90.710 Acquired absence of both cervix and uterus; Z98.890 Other specified postprocedural states; Z88.0 Allergy status to penicillin; Z88.1 Allergy status to other antibiotic agents; Z88.2 Allergy status to sulfonamides
CPT/HCPCS: 36415; 71045; 80048; 80053; 82553; 83605; 83880; 84484; 85025; 85379; 85610; 85652; 85730; 86140; 87324; 87449; 94760; J0456; J0696; J1100; J1650; J3490; J7050; J8540

== ENCOUNTER 2021-04-14 09:32 | Outpatient (CLI) | payer MEDICARE, OTHER | END 2021-04-14 09:33 | disposition home or self-care (01) | LOC: BICMAMMO 09:32 | PROVIDERS: ATTEND Family Medicine | DX: Z12.31 Encounter for screening mammogram for malignant neoplasm of breast (principal); Z91.89 Other specified personal risk factors, not elsewhere classified | CPT/HCPCS: 77063; 77067 ==

== ENCOUNTER 2022-04-22 12:59 | Outpatient (CLI) | payer MEDICARE, OTHER | END 2022-04-22 13:00 | disposition home or self-care (01) | LOC: BICMAMMO 12:59 | PROVIDERS: ATTEND Family Medicine | DX: Z12.31 Encounter for screening mammogram for malignant neoplasm of breast (principal) | CPT/HCPCS: 77063; 77067 ==